=== PATIENT | male | born 2000 | race Caucasian/White ===

== ENCOUNTER 2022-07-19 13:23 | Outpatient (CLI) | payer OTHER, SELFPAY ==
[2022-07-19 22:13] LABS: Basophils Absolute Auto 0.04 K/uL (0.00-0.30); Basophils Percent Auto 0.6 % (0.0-3.0); Eosinophils Absolute Auto 0.21 K/uL (0.00-0.50); Hematocrit 45.1 % (37.0-53.0); Lymphocytes Absolute Auto 2.46 K/uL (0.90-2.90); Lymphocytes Percent Auto 35.6 % (20-44); Mean Corpuscular HGB Conc 33 gm/dL (32-36); Mean Corpuscular Hemoglobin 29 pg (26-34); Mean Corpuscular Volume 86 fL (80-100); Monocytes Percent Auto 7.1 % (0.0-11.0); Neutrophils Absolute Auto 3.71 K/uL (1.7-7.0); Neutrophils Percent Auto 53.7 % (42.0-72.0); Platelet Count* 295 K/uL (140-440); Red Blood Count 5.22 m/uL (4.30-5.90); White Blood Count* 6.91 K/uL (4.50-11.00)
[2022-07-19 22:25] LABS: Slide Review Reflex No
[2022-07-19 22:34] LABS: Chloride* 101 mmol/L (96-114); Potassium* 4.2 mmol/L (3.6-5.1); Sodium* 139 mmol/L (135-149)
[2022-07-19 22:37] LABS: Blood Urea Nitrogen* 17 mg/dL (5-24); Carbon Dioxide* 32 mmol/L (20-32); Creatinine* 0.9 mg/dL (0.5-1.5); Estimated Glomerular Filt Rate 125 ml/min
[2022-07-19 22:38] LABS: Calcium* 9.7 mg/dL (8.4-10.6); Glucose* 72 mg/dL (60-115); Magnesium* 1.8 mg/dL (1.5-2.6)
== END 2022-07-19 13:24 | disposition home or self-care (01) ==
PROVIDERS: PCP Family Medicine; Visit Provider Family Medicine
DX: Z01.818 Encounter for other preprocedural examination (principal); R25.2 Cramp and spasm
CPT/HCPCS: 80048; 83735; 85025

== ENCOUNTER 2023-03-04 10:25 | Outpatient (CLI) | payer BC, SELFPAY | END 2023-03-04 10:26 | disposition home or self-care (01) | PROVIDERS: PCP Family Medicine; Visit Provider Nurse Practitioner Family | DX: Z13.220 Encounter for screening for lipoid disorders (principal); Z13.29 Encounter for screening for other suspected endocrine disorder; Z13.0 Encounter for screening for diseases of the blood and blood-forming organs and certain disorders involving the immune mechanism | CPT/HCPCS: 80048; 84443; 85025 ==

== ENCOUNTER 2024-01-02 12:08 | Outpatient (CLI) | payer BC, SELFPAY ==
--- OUTSIDE RECORDS SUMMARY | 2024-01-02 12:11 | XMS_ITS | Clinical Summary ---
Author Organization [facility] Address [address] [place] [address] Care Team Providers Care Quality Lead Name Role Phone Rose Simmons MD Primary Care Provider [phone] Source Comments You are receiving this document as you are listed as the primary care provider,follow-up provider, or the patient has been referred to you for consultation.This is in compliance with the Medicare and[facility] EHR Incentive Program,which states Providers who transition their patient to another setting of careor provider of care or refers their patient to another provider of care shouldprovide summary care record for each transition of care or referral. [facility] Allergies Active Allergy Reactions Criticality Noted Date Comments Other 08/09/2011 PN: Grass, ragweed, trees Medications Medication Sig Dispensed Refills Start Date End Date Status triamcinolone acetonide (KENALOG) 0.1 % ointmentIndications :Acute eczema Apply topically three times a day. 80 g 06/16/2017 Active oxyCODONE-acetamino phen (PERCOCET) 5-325 MG tablet Take 1-2 Tablets by mouth every 6 hours as needed. 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 03/09/20 Overview: LW Modifier: no clinical sx LW Onset: [id number] ; Allergy Food Resolved Problems Problem Noted Date Diagnosed Date Resolved Date Croup 08/15/2006 11/01/2012 Immunizations Name Administration Dates Next Due 4vHPV (Gardasil) 12/25/2014 9vHPV (Gardasil 9) 12/17/2016 DTaP 01/25/2007, 2,02/22/2002,2001 DTaP/Hib 02/07/2003 Flu Vac Preserv Free (3+yrs) 05/11/2012, 04/26/2011,04/09/2010,2008,03/21/2008,03/21/2007,03/09/2006,1 06/28/2004 Flu Vac Preserv Free (6-35 mo) 05/07/2003 HepA Ped/Adol (1-18 yrs) 06/22/2011,01/25/2007 HepB Ped/Adol (0-18 yrs) 08/03/2002 HepB, Unspecified Formulation 02/22/2002, 002 Hib (ActHIB) 05/01/2002,02/22/2002,01/03/2002 IPV (Polio) 01/25/2007, 3,02/22/2002,2001 Influenza IIV4 (Quadrivalent ) 0.5mL (15226) 04/08/2015 Influenza, Unspecified Formulation 05/01/2002 MCV4 (Menactra) 11/07/2013 MMR 01/25/2007,02/07/2003 Pneumococcal 7, PED 02/07/2003, 2,02/22/2002,2001 TDAP (BOOSTRIX) 11/07/2013 Varicella 01/25/2007,02/07/2003 Family History Medical History Relation Name Comments ADHD Father Allergies Father Depression Father Mental Disorder Father ADHD, bipola r Allergies Paternal Grandfather Asthma Paternal Grandfather Cancer, Prostate Paternal Grandfather Asthma Paternal Uncle Diabetes Negative Family History Heart Disease Negative Family History High Blood Pressure Negative Family History High Cholesterol Negative Family History Relation Name Status Comments Father Paternal Grandfather Paternal Uncle Social History Tobacco Use Types Packs/Day Years Used Date Smoking Tobacco: Never Smokeless Tobacco: Never Alcohol Use Standard Drinks/Week Comments No 0 (1 standard drink = 0.6 oz pur e alcohol) Sex and Gender Information Value Date Recorded Sex Assigned at Not on file Gender Identity Not on file Sexual Orientation Not on file Last Filed Vital Signs Vital Sign Reading Time Taken Comments Blood Pressure 107/50 01/26/2022 3:30 PM CDT Pulse 56 01/26/2022 3:30 PM CDT Temperature 36.6 ??C (97.8 ??F) 01/26/2022 2:58 PM CD T Respiratory Rate 18 01/26/2022 3:30 PM CDT Oxygen Saturation 97% 01/26/2022 3:30 PM CDT Inhaled Oxygen Concentration - - Weight 73.9 kg (163 lb) 09/06/2022 11:13 AM CDT Height 177.8 cm (5' 10) 09/06/2022 11:13 AM CDT Body Mass Index 23.39 09/06/2022 11:13 AM CDT Plan of Treatment Health Maintenance Due Date Last Done Comments Hep C Screening (Preventive Services) 2001 HIV Screening (Preventive Services) 2017 Adult Preventive Visit 11/03/2019 COVID-19 Vaccine ( season) 2023 05/25/2021, 09/16/2020, 08/26/2020 DTaP/Tdap/Td (7 - Tdap) 11/08/2023 11/08/19 14, 01/25/2007, 02/07/2003, Additional history exists Influenza (#1) 2024 02/23/2021, 07/2018, 04/08/2015, Additional history exists Zoster/Shingles (1 of 2) 11/03/2051 HepB Completed 08/03/2002, 01/29, 01/03/2002 Hib Completed 02/07/2003, 07/2001, 02/22/2002, Additional history exists Pneumococcal Aged Out 02/07/2003, 07/2001, 02/22/2002, Additional history exists No longer eligible based on patient's age to complete this topic IPV (Polio) Completed 01/25/2007, 11/2002, 02/22/2002, Additional history exists Varicella Completed 01/25/2007, 02/07/2003 HepA Completed 06/22/2011, 01/25/2007 HPV Vaccine Completed 12/17/2016, 12/25/2014 MCV4 Completed 12/28/2018, 11/07/2013 Medical Devices Implanted Type Area Machine Wood Sander Device Identifier Shelf Expiration Date Model / Serial / Lot Anch Marjorie Biocomposite 2.4mm - [id number] Implanted:Qty: 4 on 01/26/2022 by Sky Wolfe MD at [facility] Left: SHOULDER [employer] 08/27/2025 [id number] F- / [id number] Care Teams Quality Lead Relationship Specialty Start Date End Date Rose Simmons MD [address] [place] [address] (work) PCP - General 08/31/10
--- OUTSIDE RECORDS SUMMARY | 2024-01-02 12:11 | XMS_ITS | Patient Health Record ---
Author Organization [facility] Address [address] [place] [address] Care Team Providers Care Slipman Name Role Phone Miguel Machado ODssica Unavailable [phone] ALLERGIES No Known Allergies REASON FOR REFERRAL No Information SOCIAL HISTORY Tobacco Use: Social History Observation Description Date Details (start date - stop date) Never Smoker NA - NA Sex Assigned At : Social History Observation Description Sex Assigned At Unknown Tobacco Use/Smoking Question Answer Notes Are you a: never smoker Additional Findings: Tobacco Non-User Current no n-smoker PROBLEMS Problem Type ICD Code Onset Dates Problem Status W/U Status Risk SNOMED Code Notes Problem 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) Active confirmed Regular astigmatism of right eye (76085244590828 1) Problem Hyperopia of both eyes (H52.03) Active confirmed Hyperopia of both eyes (27590594989355 0) Problem 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 Monitor annually or sooner if patient notices any changes in vision. 09/22/2023 Visual spatial disorder (ICD-10 - R41.842) Compared, +1.00D with 1^BD prism OD and OS to just +1.00D OD and OS. Patient reports that both lens options brought the ground closer to him. He felt that the lenses with the prisms were more exagerated than the +1.00D. Gave pt +1.00 reading glasses to see if symptoms improve with latent hyperopic rx/tolerability with increased plus, may benefit from yoked prism glasses as needed. 09/22/2023 Regular astigmatism of right eye (ICD-10 - H52.221) Patient educated on today's findings, and given finalized glasses prescription. Monitor annually or sooner if patient notices any changes in vision. 09/22/2023 Other Compared, +1.00 D with 1^BD prism OD and OS to just +1.00D OD and OS. Patient reports that both lens options brought the ground closer to him. He felt that the lenses with the prisms were more exagerated than the +1.00D. PLAN OF TREATMENT No Information Insurance Providers Payer Name Payer Address Payer Phone Subscriber Number Group Number Insured Name Patient Relationship to Insured Coverage Start Date Coverage End Date [facility] [address] [place] [address] [phone] [id number] Inocente Wilcox Self - patient is the insured
--- OUTSIDE RECORDS SUMMARY | 2024-01-02 12:12 | XMS_ITS | Encounter Summary ---
Author Organization [facility] Address [address] [place] [address] Care Team Providers Care Integrity Director Name Role Phone No Ref-Primary, Physician Primary Care Provider Branden Campbell MD Unavailable [phone] Iqra Santana NP Unavailable [phone] Lawson Mcmillan MD Primary Care Provider [phone] Branden Campbell MD Unavailable [phone] Reason for Visit * Reason Onset Date Comments Forms 08/10/2022 Encounter Details Date Type Department Care Team (Late st Contact Info) Description 08/10/2022 Telephone [facility] Janett [address] [place] [phone] Poncho Traylor MD [address] [place] [id number] Forms Social History Tobacco Use Types Packs/Day Years Used Date Smoking Tobacco: Never Alcohol Use Standard Drinks/Week Comments Never 0 (1 standard drink = 0.6 oz pur e alcohol) Adolescent Education Answer Date Record ed Getting School Help Needed Not on file 02/19 Sex and Gender Information Value Date Recorded Sex Assigned at Not on file Gender Identity Not on file Sexual Orientation Not on file COVID-19 Exposure Response Date Recorded In the last 10 days, have yo u been in contact with someone who was confirmed or suspected to have Coronavirus/COVID-19? No / Unsure 01/27/2023 8:04 AM CDT documented as of this encounter Miscellaneous Notes * Telephone Encounter - Jaja Joseph - 08/10/2022 11:34 AM CDT FMLA forms completed waiting on signature. Jaja Joseph MA documented in this encounter Plan of Treatment Not on file documented as of this encounter Visit Diagnoses Not on filedocumented in this encounter Care Teams Integrity Director Relationship Specialty Start Date End Date No Ref-Primary, Physician PCP - General 07/21/22 09/15/22 Lawson Mcmillan MD [address] [place], [place] [id number] PCP - General Family Medicine 09/16/22 Branden Campbell MD [address] [place] [address] Assigned Heart and Vascular Provider 07/17/22 08/13/22 Iqra Santana NP [address] [place] [address] Assigned Heart and Vascular Provider 08/14/22 10/15/22 Branden Campbell MD [address] [place] [address] Assigned Heart and Vascular Provider 10/16/22 documented as of this encounter
--- OUTSIDE RECORDS SUMMARY | 2024-01-02 12:12 | XMS_ITS | Encounter Summary ---
Author Organization [facility] Address [address] [place] [address] Care Team Providers Care R And D Lab Technician Name Role Phone Lawson Mcmillan MD Primary Care Provider [phone] Branden Campbell MD Unavailable [phone] Encounter Details Date Type Department Care Team (Latest Contact Info) Description 11/04/2023 Travel Social History Tobacco Use Types Packs/Day Years [...] on file Sexual Orientation Not on file documented as of this encounter Plan of Treatment Not on file documented as of this encounter Visit Diagnoses Not on filedocumented in this encounter Care Teams R And D Lab Technician Relationship Specialty Start Date End Date Lawson Mcmillan MD PCP - General Family Medicine 09/16/22 Branden Campbell MD [address] [facility] [address] [place] [id number] Assigned Heart and Vascular Provider 10/16/22 documented as of this encounter
--- OUTSIDE RECORDS SUMMARY | 2024-01-02 12:12 | XMS_ITS | Referral Summary ---
Author Organization [facility] Address [address] [place] [address] Care Team Providers Care Assistance Coordinator Name Role Phone Lawson Mcmillan MD Primary Care Provider [phone] Branden Campbell MD Unavailable [phone] Encounters Date Type Department Care Team Description 11/04/2023 Travel 11/04/2023 8:00 AM CDT Ancillary Procedure [facility] [address] [place] [address] Non-Fv Credentialed Provider, Radiology Peripheral vascular disease (H24) from Last 3 Months Allergies Active Allergy Reactions Criticality Noted Date Comments No Clinical Screening - See Comments 08/09/2011 PN: Grass, ragweed, trees Medications No known medications Social History Tobacco Use Types Packs/Day Years Used Date Smoking Tobacco: Never Tobacco Cessation:Counseling Given: Not Answered Alcohol Use Standard Drinks/Week Comments Never 0 [...] Sign Reading Time Taken Comments Blood Pressure 134/85 01/27/2023 8:43 AM CDT Pulse 58 01/27/2023 8:43 AM CDT Temperature 36.8 ??C (98.2 ??F) 07/21/2022 1 1:00 AM MACHINE STEMMER Respiratory Rate 16 07/21/2022 11:0 0 AM MACHINE STEMMER Oxygen Saturation 96% 07/21/2022 11: 00 AM MACHINE STEMMER Inhaled Oxygen Concentration - - Weight 73.8 kg (162 lb 12.8 oz) 07/21/2022 5:45 AM MACHINE STEMMER Height 175.3 cm (5' 9) 07/21/2022 5:45 AM MACHINE STEMMER Body Mass Index 24.04 07/21/2022 5:45 AM MACHINE STEMMER Plan of Treatment Not on file Procedures Procedure Name Priority Date/Time Associated Diagnosis Comments CTA ABDOMEN PELVIS RUNOFF W CONTRAST Routine 11/04/2023 8:41 AM CDT Peripheral vascular disease (H24) from Last 3 Months Results * CTA Abdomen Pelvis Runoff w Contrast (11/04/2023 8:41 AM CDT) Anatomical Region Laterality Modality Lower Extremity, SUBRAD IR P ROCEDURE, UMP CT CTA, RAD CT Computed Tomography Impressions 11/04/2023 11:43 AM CDT Impression: Normal appearance of the aorta and bilateral lower extremity arteries. RAY LISA MD Narrative 11/04/2023 11:43 AM CDT Exam: Computed tomographic angiography of the abdomen, pelvis, and bilateral lower extremities with contrast dated 11/04/2023 Clinical information: 23-year-old male with concerns for peripheral arterial disease. Underwent popliteal entrapment release surgery 07/21/2022. Technique: Axial images obtained of the abdomen, pelvis, and lower extremities through the feet obtained without and following the injection of contrast media in the arterial phase. Source images reviewed as well as 3D and multi-planar reconstructions. Contrast: Isovue 370 135cc Comparison: Lower extremity arterial ultrasound 10/06/2022 . Findings: ?? Abdominal aorta: Normal in appearance. Accessory left renal artery supplying the lower pole. Otherwise, standard arterial anatomy. Right pelvis and lower extremity: Normal appearance of the right common iliac artery through the popliteal artery. Normal three-vessel runoff to the foot. Left pelvis and lower extremity: Normal appearance of the left common iliac artery through the popliteal artery. Normal three-vessel runoff to the foot. Abdomen: The liver, spleen, gallbladder, pancreas adrenal glands, kidneys appear normal. The stomach, small bowel and colon appear normal. Prominent bilateral inguinal lymph nodes can be normal. No osseous lesions. Lower chest: Lung bases are clear. Procedure Note Ray Lisa MD - 11/04/2023 Exam: Computed tomographic angiography of the abdomen, pelvis, and bilateral lower extremities with contrast dated 11/04/2023 Clinical information: 23-year-old male with concerns for peripheral arterial disease. Underwent popliteal entrapment release surgery 07/21/2022. Technique: Axial images obtained of the abdomen, pelvis, and lower extremities through the feet obtained without and following the injection of contrast media in the arterial phase. Source images reviewed as well as 3D and multi-planar reconstructions. Contrast: Isovue 370 135cc Comparison: Lower extremity arterial ultrasound 10/06/2022 . Findings: Abdominal aorta: Normal in appearance. Accessory left renal artery supplying the lower pole. Otherwise, standard arterial anatomy. Right pelvis and lower extremity: Normal appearance of the right common iliac artery through the popliteal artery. Normal three-vessel runoff to the foot. Left pelvis and lower extremity: Normal appearance of the left common iliac artery through the popliteal artery. Normal three-vessel runoff to the foot. Abdomen: The liver, spleen, gallbladder, pancreas adrenal glands, kidneys appear normal. The stomach, small bowel and colon appear normal. Prominent bilateral inguinal lymph nodes can be normal. No osseous lesions. Lower chest: Lung bases are clear. Impression: Normal appearance of the aorta and bilateral lower extremity arteries. RAY LISA MD Radiology Non-Fv Credentialed Provider I MG CT ORDERABLES from Last 3 Months Care Teams Assistance Coordinator Relationship Specialty Start Date End Date Lawson Mcmillan MD PCP - General Family Medicine 09/16/22 Branden Campbell MD [address] [place] [address] Assigned Heart and Vascular Provider 10/16/22
--- OUTSIDE RECORDS SUMMARY | 2024-01-02 12:12 | XMS_ITS | Clinical Summary ---
Author Organization [facility] Address [place], [place] [address] Care Team Providers Care Director Safety Name Role Phone Pcp, No Primary Care Provider Unavailabl e Allergies Active Allergy Reactions Criticality Noted Date Comments Unlisted Allergen (Include Detail In Comments) Other - Describe In Comment Field 08/09/2011 PN: Grass, ragweed, trees Medications No known medications Active Problems No known active problems Social History Tobacco Use Types Packs/Day Years Used Date Smoking Tobacco: Never Smokeless Tobacco: Never Tobacco Cessation:Counseling Given: Yes Alcohol Use Standard Drinks/Week Comments Not Currently 0 (1 standard drink = 0.6 oz pur e alcohol) Social Connections Answer Date Recorded Frequency of Communication with Friends and Fami ly Not on file 01/13/2023 Sex and Gender Information Value Date Recorded Sex Assigned at Not on file Gender Identity Not on file Sexual Orientation Not on file Obstetrics History Last Filed Vital Signs Vital Sign Reading Time Taken Comments Blood Pressure 110/67 01/13/2023 3:03 PM CDT Pulse 74 01/13/2023 3:03 PM CDT Temperature 36.8 ??C (98.2 ??F) 01/13/2023 3:03 PM CD T Respiratory Rate - - Oxygen Saturation 96% 01/13/2023 3:03 PM CDT Inhaled Oxygen Concentration - - Weight 72 kg (158 lb 12.8 oz) 02/28/2019 11:31 A M CDT Height 174.5 cm (5' 8.7) 02/28/2019 11:31 AM CD T Body Mass Index 23.66 02/28/2019 11:31 AM CDT Plan of Treatment Health Maintenance Due Date Last Done Comments Tdap 2012 Depression screening for age 12+ 2013 HIV for age 15-65 2016 HPV series for age 9-26 (1 - Male 3-dose series) 2016 BMI (ht and wt on same day) for age 18+ 11/03/2019 Hepatitis C screening for ag e 18-79 11/03/2019 Tetanus booster 2021 COVID-19 vaccine series ( season) 2023 05/25/2021, 09/16/2020, 08/26/2020 Influenza for age 9-49 01/29/2024 Pneumococcal series for age 6-64 Aged Out No longer eligible b ased on patient's age to complete this topic Care Teams Director Safety Relationship Specialty Start Date End Date Pcp, No . PCP - General 02/28/19
--- OUTSIDE RECORDS SUMMARY | 2024-01-02 12:12 | XMS_ITS | Clinical Summary ---
Author Organization [place] [facility] Address [address] [place] [address] Care Team Providers Care Housekeeping Director Name Role Phone Lawson Mcmillan MD Primary Care Provider Branden Campbell MD Unavailable [phone] Allergies Active Allergy Reactions Criticality Noted Date Comments No Clinical Screening - See Comments 08/09/2011 PN: Grass, ragweed, trees Medications No known medications Encounters Date Type Department Care Team Description 11/04/2023 8:00 AM CDT Ancillary Procedure [facility] [address] 1[address] [place] [address] Non-Fv Credentialed Provider, Radiology Peripheral vascular disease (H24) 11/04/2023 Travel from Last 3 Months Social History Tobacco Use Types Packs/Day Years [...] ??C (98.2 ??F) 07/21/2022 1 1:00 AM DATABASE MANAGEMENT SPECIALIST Respiratory Rate 16 07/21/2022 11:0 0 AM DATABASE MANAGEMENT SPECIALIST Oxygen Saturation 96% 07/21/2022 11: 00 AM DATABASE MANAGEMENT SPECIALIST Inhaled Oxygen Concentration - - Weight 73.8 kg (162 lb 12.8 oz) 07/21/2022 5:45 AM DATABASE MANAGEMENT SPECIALIST Height 175.3 cm (5' 9) 07/21/2022 5:45 AM DATABASE MANAGEMENT SPECIALIST Body Mass Index 24.04 07/21/2022 5:45 AM DATABASE MANAGEMENT SPECIALIST Plan of Treatment Health Maintenance Due Date Last Done Comments ADVANCE CARE PLANNING 2001 ANNUAL REVIEW OF HM ORDERS 2001 YEARLY PREVENTIVE VISIT 2001 HIV SCREENING 2016 HEPATITIS C SCREENING 11/03/2019 COVID-19 Vaccine ( season) 2023 05/25/2021, 09/16/2020, 08/26/2020 PHQ-2 (once per calendar year) 2023 DTAP/TDAP/TD IMMUNIZATION (7 - Td or Tdap) 11/08/2023 11/07/2013, 01/25/2007, 02/07/2003, Additional history exists INFLUENZA VACCINE (#1) 2024 , 06/01/2018, 04/08/2015, Additional history exists HEPATITIS B IMMUNIZATION Completed 003, 02/22/2002, 01/03/2002 Pneumococcal Vaccine: Pediatrics (0 to 5 Years) and At-Risk Patients (6 to 64 Years) Aged Out 02/07/2003, 05/01/2002, 02/22/2002, Additional history exists No longer eligible based on patient's age to complete this topic IPV IMMUNIZATION Completed 01/25/2007, 11/2002, 02/22/2002, Additional history exists HPV IMMUNIZATION Completed 12/17/2016, 12/25/2014 MENINGITIS IMMUNIZATION Completed 12/28/2018, 11/07 RSV MONOCLONAL ANTIBODY Aged Out No l onger eligible based on patient's age to complete this topic Procedures Procedure Name Priority Date/Time Associated Diagnosis [...] bilateral lower extremity arteries. RAY LISA MD [facility] 11/04/2023 11:43 AM CDT Exam: Computed tomographic [...] ORDERABLES from Last 3 Months Care Teams Housekeeping Director Relationship Specialty Start Date End Date Lawson Mcmillan MD PCP - General Family Medicine 09/16/22 Branden Campbell MD [address] [place] [address] Assigned Heart and Vascular Provider 10/16/22
--- OUTSIDE RECORDS SUMMARY | 2024-01-02 12:12 | XMS_ITS | Encounter Summary ---
Author Organization [facility] Address [address] [place] [id number] Care Team Providers Care Stereotype Caster Name Role Phone Lawson Mcmillan MD Primary Care Provider + [phone] Branden Campbell MD Unavailable [phone] Reason for Visit * Diagnostic Imaging CT Scan (Routine) - Closed Specialty Diagnoses / Procedures Referred By Contac t Referred To Contact Radiology. Diagnoses Peripheral vascular disease (H24) Procedures CTA Abdomen Pelvis Runoff w Contrast CTA Abdomen with Contrast Non-Fv Credentialed Provider, Radiology [address] [address] Referral ID Status Reason Start Date Expiration Date Visits Re quested Visits Authorized [id number] Closed 10/20/2023 10/19/2024 1 1 Encounter Details Date Type Department Care Team (Late st Contact Info) Description 11/04/2023 8:00 AM CDT Ancillary Procedure [facility] [address] [address] Non-Fv Credentialed Provider, Radiology Peripheral vascular disease (H24) Social History Tobacco Use Types Packs/Day Years [...] on file documented as of this encounter Procedures Procedure Name Priority Date/Time Associated Diagnosis Comments CTA ABDOMEN PELVIS RUNOFF W CONTRAST Routine 11/04/2023 8:41 AM CDT Peripheral vascular disease (H24) documented in this encounter Results * CTA Abdomen Pelvis Runoff w [...] Non-Fv Credentialed Provider I MG CT ORDERABLES documented in this encounter Visit Diagnoses Diagnosis Peripheral vascular disease (H24) Peripheral vascular disease, unspecified documented in this encounter Administered Medications Inactive Administered Medications - up to 3 most recent administrations Medication Order MAR Action Action Date Dose Rate Site iopamidol (ISOVUE-370) solution 135 mL 135 mL, Intravenous, ONCE, On Tue11/04/23 at 0830, For 1 dose $Given 11/04/2023 8:09 AM CDT 135 mLs sodium chloride 0.9 % bag 500mL for CT scan flush use As instructed, 100 mL, ONCE, On Tue11/04/23 at 0830, For 1 dose, This entry is for use by Radiology to intermittently used as a flush in patients receiving a CT scan. $Given 11/04/2023 8:09 AM CDT 100 mLs documented in this encounter Care Teams Stereotype Caster Relationship Specialty Start Date End Date Lawson Mcmillan MD PCP - General Family Medicine 09/16/22 Branden Campbell MD [id number] [id number] Assigned Heart and Vascular Provider 10/16/22 documented as of this encounter
--- NOTE | 2024-01-02 12:15 | CRLHL7_ITS ---
For Patients: As a result of the Century Cures Act, medical imaging exams and procedure reports are released immediately into your electronic medical record. You may view this report before your referring provider. If you have questions, please contact your health care provider. INDICATION: Right lower quadrant pain COMPARISON: none TECHNIQUE: Villanueva scale imaging was performed of the scrotum. In addition color Doppler and spectral Doppler analysis was performed of the testes. FINDINGS: The testes demonstrate normal arterial and venous blood flow on color Doppler and spectral Doppler analysis. The testes have uniform echogenicity with no evidence of a suspicious mass or area of inflammation. The right testis measures 4.0 x 2.0 x 2.7 cm in size and the left testis measures 3.4 x 2.4 x 2.6 cm. Bilateral epididymal head cysts measuring up to 5 millimeters. There is no evidence of a hydrocele or varicocele. IMPRESSION: Simple epididymal head cysts. Normal testicles. Dictated by Lawson Garcia MD @ 01/02/2024 3:58:56 PM (Electronically Signed)
== END 2024-01-02 12:09 | disposition home or self-care (01) ==
PROVIDERS: PCP Family Medicine; Visit Provider Family Medicine
DX: R10.31 Right lower quadrant pain (principal); L72.0 Epidermal cyst
CPT/HCPCS: 76870; 93976

== ENCOUNTER 2024-10-10 17:38 | Outpatient (CLI) | payer BC, SELFPAY ==
--- NOTE | 2024-10-10 17:30 | CRLHL7_ITS ---
For Patients: As a result of the Century Cures Act, medical imaging exams and procedure reports are released immediately into your electronic medical record. You may view this report before your referring provider. If you have questions, please contact your health care provider. Indication: RLQ/groin pain, painful with activity, area above right ilioinguinal ligament Technique: Grayscale and color Doppler ultrasound of the right lower quadrant abdominal wall performed with supine, sitting and standing positions. Comparison: None Findings: There is an area of somewhat ill-defined hyperechoic tissue within the tissues just beneath the skin measuring approximately 1.6 cm. No internal vascularity. No hernia. No shadowing lesion. No adenopathy. Impression: Ill-defined area of hyperechoic tissue associated with the rectus muscle may represent subacute injury. No evidence of hernia or fluid collection Dictated by Lawson Garcia MD @ 10/11/2024 10:40:25 AM (Electronically Signed)
== END 2024-10-10 17:39 | disposition home or self-care (01) ==
LOC: US 17:38
PROVIDERS: PCP Family Medicine; Visit Provider Surgery
DX: R10.31 Right lower quadrant pain (principal)
CPT/HCPCS: 76705; 80048; 85025